=== PATIENT | female | born 1960 | race Caucasian/White ===

== ENCOUNTER → 2016-03-15 | Outpatient (CLI) | payer OTHER ==
[~2016-03-15] MED LIST: IOPAMIDOL (ISOVUE-300) 100 ML BTL IV ONE
--- NOTE | 2016-03-15 18:04 | CT ---
CT Neck With Contrast Reason for examination: Evaluate palpable area which has developed in the left neck in a 55-year-old female. No previous studies are available for comparison. Technique: Patient placed a marker on the palpable area in the left neck. A spiral acquisition was pe rformed through the neck following intravenous administration of 90 mL of Isovue-300. Axial images ar e obtained at 2.5 mm intervals and reformatted at 1.25 mm thickness. The examination is reviewed on t [employer] workstation at multiple window/level settings. Sagittal and coronal reformations are performed. Do se reduction techniques were utilized for this examination. Findings: Immediately adjacent to the soft tissue marker in the mid neck, there is mild asymmetry in the subcutaneous fat being slightly more pronounced on the left side. If there is a discrete palpable abnormality present on physical examination this may represent a lipoma, although, there is no discr ete mass seen on the CT examination. Vascular structures appear normal. No enlarged lymph nodes are seen. No abnormal fluid collections ar e identified. The parotid and submandibular glands are not enlarged. No acute osseous abnormality is seen. There is mild straightening of normal cervical curvature and degenerative changes are noted wit h disk space loss at C5-C6 and C6-C7. Impression: No definite mass is seen corresponding to the reported area of palpable asymmetry detecte d by the patient. There does appear to be mild asymmetry in the subcutaneous fat in the region and if there is a palpable area clearly identified on physical examination, sonographic interrogation could be obtained to assess for a lipoma.
== END ==
LOC: FIMAGING 15:57
PROVIDERS: ATTEND Internal Medicine
DX: R22.1 Localized swelling, mass and lump, neck (principal)
CPT/HCPCS: Q9967

== ENCOUNTER → 2016-03-29 | Outpatient (CLI) | payer OTHER | LOC: FIMAGING 12:12 | PROVIDERS: ATTEND Internal Medicine | DX: R22.1 Localized swelling, mass and lump, neck (principal) ==

== ENCOUNTER → 2016-09-11 | Outpatient (CLI) | payer OTHER | LOC: BMCIMAGING 08:25 | PROVIDERS: ATTEND Internal Medicine | DX: Z12.31 Encounter for screening mammogram for malignant neoplasm of breast (principal) | CPT/HCPCS: G0202 ==